=== PATIENT | female | born 1995 | race African-American/Black ===

== ENCOUNTER 2017-09-15 10:30 | Emergency (ER) | payer MEDICAID, OTHER ==
[~2017-09-15] VITALS: Ht 167.6 cm; Wt 48.5 kg
[~2017-09-15 10:30] MED LIST: CIPRO500 MG PO; IBUPROFEN800 MG ORAL; KEFLEX500 MG ORAL; NORCO 5-325 TA1 EACH ORAL; PHENAZOPYRIDIN200 MG ORAL
[2017-09-15] MEDS ORDERED: NKM (11:02)
[2017-09-15 11:07] VITALS: BP 116/70
--- NOTE | 2017-09-15 12:16 | Emergency Room Report ---
History of Present Illness General Chief Complaint: Sore Throat Source: Patient Present Illness HPI Patient presents with main complaint of sore throat for 2 days. She has been ill for at least 4 days before with mild URI sy, vomiting and diarrhea. The throat pain was worse yesterday with hoarseness. She has pain with swallowing, but is able to eat without difficulty. She left work today because of the sore throat. The pain is rated 6/10, improving, not radiating. She did not see white spots on her tonsils like when she had strep. She reports feeling feverish. Also had vomiting and diarrhea which is better now. She doesn't believe she is - on period now. No dysuria, joint pain. She states she has had a mildly productive cough. She says this had kept her awake at night. She has not hear herself wheezing. Pyelonephritis in past. 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 DDx: strep, viral syndrome, URI, pharyngitis. History and exam is more consistent with viral process than bacterial. Antibiotics not indicated. Symptomatic treatment indicated. Patient eating. NAD. Prescriptions given and treatment plan discussed. Patient stable for outpatient observation and treatment. Last Vital Signs Date Time Temp Pulse Resp B/P (MAP) Pulse Ox O2 Delivery O2 Flow Rate FiO2 09/15/17 12:46 98.8 71 17 116/70 96 Room Air 98.8 Status: improved Disposition: HOME, SELF-CARE Condition: Improved Scripts Guaifenesin/Codeine Phos* (ROBITUSSIN AC*) 118 Ml Liquid 5 ML ORAL Q6H PRN for For Cough, #90 ML 0 Refills Prov: Roberto Rojo M.D. 09/15/17 Ibuprofen* (MOTRIN*) 600 Mg Tablet 600 MG ORAL Q6H PRN for For Pain, #16 TAB Prov: Roberto Rojo M.D. 09/15/17 Referrals: NON PHYSICIAN (PCP) Roberto Rojo M.D. Sep 15, 2017 12:16
[2017-09-15] MEDS ORDERED: GUAIFENESIN-CO118 M1 ORAL (12:18)
[2017-09-15] MEDS ORDERED: IBUPROFEN600 MG ORAL (12:18)
[2017-09-15 12:46] VITALS: BP 116/70
== END 2017-09-15 12:35 | disposition home or self-care (01) ==
LOC: EMR 11:45
DX: J06.9 Acute upper respiratory infection, unspecified (principal); R19.7 Diarrhea, unspecified; R11.10 Vomiting, unspecified
CPT/HCPCS: 99284

== ENCOUNTER 2020-02-17 15:05 | Emergency (ER) | payer MEDICAID, OTHER ==
[~2020-02-17] VITALS: Ht 167.6 cm; Wt 58.1 kg
[~2020-02-17 15:05] MED LIST changes: +FLUCONAZOLE100 MG ORAL; +GUAIFENESIN-CO118 M1 ORAL; +IBUPROFEN600 MG ORAL; +METRONIDAZOLE500 MG ORAL; +NKM; +PROMETHAZINE-C118 M1 ORAL
--- NOTE | 2020-02-17 15:25 | NUR ---
ED Nurse Note:pt. reported being 5 weeks , she started spotting last night very small amount, no c/o pain
--- NOTE | 2020-02-17 15:47 | NUR ---
ED Nurse Note:blood and urine sent to labs, given IV fluids
--- NOTE | 2020-02-17 15:49 | Emergency Room Report ---
History of Present Illness General Chief Complaint: Complications Source: Patient Present Illness HPI Patient presents with spotting since last night. But no clot material. Is been watery and minimal. She denies any abdominal pain. An ultrasound 2 weeks ago and was told that she may be 5 weeks . She denies any fevers or chills. There is no dysuria. She is moving her bowels well. She has morning sickness with nausea. There is no vomiting or diarrhea. She has been taking bites. She does not know her blood type. She has had several miscarriages. She is concerned that this might be what is happening now. She denies exposure to COVID-19 positive contacts. No sore throat, chest pain, palpitations, shortness of breath, joint pain, rashes, depression, anxiety, visual changes, dizziness, headache. 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 Now: Yes - 5 weeks : 5 Para: 1 Reviewed Nursing Documentation: PMH: Agreed; PSxH: Agreed Nursing Documentation-PMH Past Medical History: No History, Except For Review of Systems All Other Systems: negative except mentioned in HPI Physical Exam Vital Signs Date Time Temp Pulse Resp B/P (MAP) Pulse Ox O2 Delivery O2 Flow Rate FiO2 02/17/20 15:12 98.2 79 16 109/67 (81) 97 Room Air Sp02 EP Interpretation: reviewed, normal General Appearance: well appearing, no apparent distress, GCS 15 Head: normocephalic Eyes: bilateral eye normal inspection, bilateral eye PERRL, bilateral eye EOMI ENT: moist mucus membranes Neck: supple Respiratory: lungs clear, normal breath sounds Cardiovascular #1: regular rate, rhythm Cardiovascular #2: 2+ radial (R) Gastrointestinal: normal inspection, normal bowel sounds, non tender, no mass, non-distended Genitourinary: no CVA tenderness, deferred - For ultrasound Musculoskeletal: back normal, normal range of motion, gait/station normal Neurologic: alert, oriented x3, grossly normal Psychiatric: mood/affect normal - Concerned Skin: no rash, warm/dry Medical Decision Making Diagnostic Impression: Primary Impression: Threatened miscarriage in early Additional Impressions: Morning sickness 6 weeks gestation of ER Course Patient presents with spotting 5 weeks without abdominal pain. Differential includes threatened miscarriage, UTI, ectopic amongst others. Evaluation with labs and ultrasound. Patient treated with IV hydration. Patient reports no pain and Tylenol not indicated. Labs unremarkable except for blood type of A+. Quant is appropriate for stated gestational age. Ketonuria. Ultrasound with 6-week 3-day pole. Subchorionic hemorrhage noted. Discussed results with patient. 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 Discussion with treatment of morning sickness. Patient still without pain and no more bleeding at this time. Patient tolerated oral intake of glucose containing fluid. Patient stable for outpatient observation and treatment. Laboratory Tests Test 02/17/20 15:25 02/17/20 15:45 Urine Color Dhara Urine Appearance Slightly cloudy Urine pH 6 (4.5-8.0) Urine Specific [place] 1.020 (1.005-1.035) Urine Protein 2+ (NEGATIVE) H Urine Glucose (UA) Negative (NEGATIVE) Urine Ketones 2+ (NEGATIVE) H Urine Blood 4+ (NEGATIVE) H Urine Nitrite Negative (NEGATIVE) Urine Bilirubin Negative (NEGATIVE) Urine Ictotest Negative (NEGATIVE) Urine Urobilinogen 1 MG/DL (0.0-1.0) H Urine Leukocyte Esterase 1+ (NEGATIVE) H Urine RBC 2-4 /HPF (0 - 2) H Urine WBC 2-4 /HPF (0 - 2) Urine Squamous Epithelial Cells Few /LPF (NONE/OCC) Urine Bacteria Few /HPF (NONE) Urine Mucus Moderate /LPF (NONE/OCC) H White Blood Count 6.8 K/UL (4.8-10.8) Red Blood Count 4.86 M/UL (4.20-5.40) Hemoglobin 12.5 G/DL (12.0-16.0) Hematocrit 39.2 % (37.0-47.0) Mean Corpuscular Volume 81 FL (80-99) Mean Corpuscular Hemoglobin 25.7 PG (27.0-31.0) L Mean Corpuscular Hemoglobin Concent 31.9 G/DL (32.0-36.0) L Red Cell Distribution Width 17.3 % (11.6-14.8) H Platelet Count 168 K/UL (150-450) Mean Platelet Volume 9.7 FL (6.5-10.1) Neutrophils (%) (Auto) 50.1 % (45.0-75.0) Lymphocytes (%) (Auto) 37.5 % (20.0-45.0) Monocytes (%) (Auto) 9.1 % (1.0-10.0) Eosinophils (%) (Auto) 1.4 % (0.0-3.0) Basophils (%) (Auto) 2.0 % (0.0-2.0) Prothrombin Time 11.0 SEC (9.30-11.50) Prothrombin Time INR 1.0 (0.9-1.1) Activated Partial Thromboplast Time 30 SEC (23-33) Sodium Level 134 MMOL/L (136-145) L Potassium Level 3.3 MMOL/L (3.5-5.1) L Chloride Level 103 MMOL/L (98-107) Carbon Dioxide Level 26 MMOL/L (21-32) Anion Gap 5 mmol/L (5-15) Blood Urea Nitrogen 13 mg/dL (7-18) Creatinine 0.7 MG/DL (0.55-1.30) Estimated Glomerular Filtration Rate > 60 mL/min (>60) Glucose Level 53 MG/DL (74-106) L Calcium Level 9.3 MG/DL (8.5-10.1) Total Bilirubin 0.7 MG/DL (0.2-1.0) Aspartate Amino Transferase (AST) 12 U/L (15-37) L Alanine Aminotransferase (ALT) 17 U/L (12-78) Alkaline Phosphatase 42 U/L (46-116) L Total Protein 7.8 G/DL (6.4-8.2) Albumin 3.9 G/DL (3.4-5.0) Globulin 3.9 g/dL Albumin/Globulin Ratio 1.0 (1.0-2.7) Human Chorionic Gonadotropin, Quant 96738 mIU/mL (1-6) H Last Vital Signs Date Time Temp Pulse Resp B/P (MAP) Pulse Ox O2 Delivery O2 Flow Rate FiO2 9/20/20 17:41 98.2 68 16 115/69 98 Room Air Status: improved Disposition: HOME, SELF-CARE Condition: Improved Scripts Promethazine HCl (Promethegan) 25 Mg Supp.rect 25 MG RECTAL Q8HR PRN for Nausea & Vomiting, #3 SUPP 1 Refill Prov: Roberto Rojo MD 02/17/20 Promethazine Hcl* (PHENERGAN*) 25 Mg Tablet 25 MG ORAL Q8HR for nausea and vomiting, #8 TAB 1 Refill Prov: Roberto Rojo MD 02/17/20 Doxylamine Succinate/Vit B6 (Doxylamine-Pyridoxine 10-10 mg) 1 Each Tablet. 2 EACH PO QHS PRN for morning sickness, #14 TAB Prov: Roberto Rojo MD 02/17/20 Referrals: MALCOLM SOUZA,REFERRING (PCP) Roberto Rojo MD Feb 17, 2020 15:49
[2020-02-17 15:53] LABS: EOSINOPHILS % (AUTO) 1.4 % (0.0-3.0); HEMATOCRIT 39.2 % (37.0-47.0); HEMOGLOBIN 12.5 G/DL (12.0-16.0); LYMPHOCYTES % (AUTO) 37.5 % (20.0-45.0); MEAN CORPUSCULAR VOLUME 81 FL (80-99); MONOCYTES % (AUTO) 9.1 % (1.0-10.0); NEUTROPHILS % (AUTO) 50.1 % (45.0-75.0); PLATELET COUNT 168 K/UL (150-450); RED BLOOD COUNT 4.86 M/UL (4.20-5.40); RED CELL DISTRIBUTION WIDTH 17.3 % (11.6-14.8); WHITE BLOOD COUNT 6.8 K/UL (4.8-10.8)
[2020-02-17 15:57] LABS: APPEARANCE,URINE SLIGHTLY CLOUDY; BILIRUBIN, URINE NEGATIVE (NEGATIVE); COLOR,URINE AMBER; GLUCOSE, URINE (UA) NEGATIVE (NEGATIVE); KETONES,URINE 2+ (NEGATIVE); LEUKOCYTE ESTERASE ,URINE 1+ (NEGATIVE); NITRITE,URINE NEGATIVE (NEGATIVE); PH,URINE 6 (4.5-8.0); PROTEIN,URINE 2+ (NEGATIVE); UROBILINOGEN,URINE 1 MG/DL (0.0-1.0)
[2020-02-17 16:05] LABS: ANION GAP 5 mmol/L (5-15); BLOOD UREA NITROGEN 13 mg/dL (7-18); CALCIUM 9.3 MG/DL (8.5-10.1); CARBON DIOXIDE 26 MMOL/L (21-32); CHLORIDE 103 MMOL/L (98-107); CREATININE 0.7 MG/DL (0.55-1.30); POTASSIUM 3.3 MMOL/L (3.5-5.1); SODIUM 134 MMOL/L (136-145)
[2020-02-17 16:09] LABS: ALANINE AMINOTRANSFERASE 17 U/L (12-78); ALBUMIN 3.9 G/DL (3.4-5.0); ALKALINE PHOSPHATASE 42 U/L (46-116); ASPARTATE AMINO TRANSFERASE 12 U/L (15-37); BILIRUBIN,TOTAL 0.7 MG/DL (0.2-1.0)
--- NOTE | 2020-02-17 17:08 | Diagnostic Imaging Report ---
EXAM: US First Trimester , Transabdominal and Transvaginal CLINICAL HISTORY: ABD PAIN TECHNIQUE: Real-time transabdominal and transvaginal obstetrical ultrasound of the maternal pelvis and a first trimester with image documentation. Transvaginal imaging was used for better evaluation of the fetus and adnexa. COMPARISON: No relevant prior studies available. FINDINGS: Gestation: Single intrauterine gestational sac with a yolk sac and pole. heart rate 127 bpm. Estimated gestational age 6 weeks and 3 days. Placenta/amniotic fluid: Large subchorionic hemorrhage measuring 3.9 x 2.0 cm. Uterus/cervix: Unremarkable. No myometrial mass. Ovaries: The right ovary measures 2.8 cm. The left ovary measures 3.1 cm. No suspicious lesion. No torsion. Free fluid: Small volume simple free fluid. IMPRESSION: 1. Single living intrauterine with an estimated gestational age of 6 weeks and 3 days. 2. Large subchorionic hemorrhage.
[2020-02-17] MEDS ORDERED: PHENERGAN25 M1 ORAL (17:29)
[2020-02-17] MEDS ORDERED: DOXYLAMINE-PYR1 EACH PO (17:29)
[2020-02-17] MEDS ORDERED: PHENERGAN SUPP25 MG RECTAL (17:29)
--- NOTE | 2020-02-17 17:40 | NUR ---
ER DISCHARGE NOTE: Patient is cleared to be discharged per ERMD, pt is aox4, on room air, with stable vital signs. pt was given dc and prescription instructions, pt was able to verbalize understanding, pt id band and iv site removed without complications. pt is able to ambulate with steady gait. pt took all belongings.
[2020-02-17 17:41] VITALS: BP 115/69
== END 2020-02-17 17:43 | disposition home or self-care (01) ==
LOC: EMR 15:40
DX: O20.0 Threatened abortion (principal); O21.9 Vomiting of pregnancy, unspecified; Z3A.01 Less than 8 weeks gestation of pregnancy
CPT/HCPCS: 36415; 76801; 76817; 80053; 81003; 84702; 85025; 85610; 85730; 86900; 86901; 96360; Z7502; 99284